=== PATIENT | male | born 1980 | race Caucasian/White ===

== ENCOUNTER 2024-11-04 10:28 | Day surgery (SDC) | payer OTHER ==
[~2024-11-04] VITALS: Ht 172.7 cm; Wt 155.4 kg
[2024-11-04] VITALS (15 sets, daily range): BP systolic 95–128; BP diastolic 51–72; PULSE 61–113; RESP 13–33; TEMP 98.4; O2SAT 94–98
[~2024-11-04 10:28] MED LIST: AMI200T PO; APIX5TAB3 PO; ATOR20TA66 PO; CIPR-259 PO; LOSA1TAB41 PO; METO-384 PO; METR-159 PO; SENN-223 PO; SPIR25TA5 PO
[2024-11-04] MEDS ORDERED: EMPA10TA PO (11:29)
[2024-11-04] MEDS ORDERED: ROPI1TAB47 PO (11:29)
[2024-11-04] MEDS ORDERED: BUPR-480 PO (11:29)
[2024-11-04] MEDS ORDERED: FLUO40CA PO (11:29)
[2024-11-04] MEDS ORDERED: METO-395 PO (11:29)
[2024-11-04] MEDS ORDERED: SOTA80TA46 PO (11:29)
[2024-11-04] MEDS: fentaNYL/PF 50MCG/1 ML 2ML syringe IV ONE (14:47)
[2024-11-04] MEDS: MIDAZolam 1mg/ml 10ml vial IV ONE (14:48)
[2024-11-04] MEDS: normal saline 1000ml 1,000 ML IV SCH (14:49)
== END 2024-11-04 16:05 | disposition home or self-care (01) ==
LOC: SSTAY O 10:28
PROVIDERS: ATTEND Student in an Organized Health Care Education/Training Program
DX: I48.91 Unspecified atrial fibrillation (principal); G47.33 Obstructive sleep apnea (adult) (pediatric); I10 Essential (primary) hypertension; Z79.899 Other long term (current) drug therapy; R94.31 Abnormal electrocardiogram [ECG] [EKG]
CPT/HCPCS: 92960; 93005; J2250; J3010; J7030